=== PATIENT | male | born 1945 | race Caucasian/White ===

== ENCOUNTER 2021-07-14 15:29 | Emergency (ER) | payer OTHER ==
[2021-07-14] MEDS ORDERED: Sodium Chloride 0.9% 10 ML Syringe FLUSH PRN (15:31)
[2021-07-14] MEDS ORDERED: Diphtheria,Pertussis(Acell),Tetanus Vaccine 0.5 ML Syringe IM ONE (15:37)
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
[2021-07-14] MEDS ORDERED: Acetaminophen 500 MG Tab PO ONE (16:39)
[2021-07-14] MEDS ORDERED: Acetaminophen/oxyCODONE 325-5 MG Tab PO STA (16:45)
[2021-07-14] MEDS ORDERED: Lactated Ringers 1,000 ML IV ONE (17:00)
[2021-07-14] MEDS ORDERED: cefTRIAXone 1 GM in Sodium Chloride 0.9% 50 ML IV ONE (17:26)
[2021-07-14] MEDS ORDERED: Azithromycin 250 MG Tab PO ONE (17:27)
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
[2021-07-14] MEDS ORDERED: fentaNYL 100 MCG/2 ML SDV IVPUSH ONE ×2 (20:09→21:53)
[2021-07-14] MEDS ORDERED: Bacitracin Oint 1 GM U/D Packet TOP ONE (21:49)
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
== END 2021-07-14 22:08 ==
LOC: JP.ED 15:29
DX: S12.690A Other displaced fracture of seventh cervical vertebra, initial encounter for closed fracture (principal); S20.311A Abrasion of right front wall of thorax, initial encounter; S30.811A Abrasion of abdominal wall, initial encounter; C34.31 Malignant neoplasm of lower lobe, right bronchus or lung; J18.9 Pneumonia, unspecified organism; Z23 Encounter for immunization; V49.10XA Passenger injured in collision with unspecified motor vehicles in nontraffic accident, initial encounter; Y92.410 Unspecified street and highway as the place of occurrence of the external cause
CPT/HCPCS: 36415; 71045; 72125; 72128; 80053; 81001; 83605; 85027; 86140; 87040; 87635; 90471; 90715; 96365; 96375; 96376; 99285; A9270; J0696; J3010; J7120; U0002